=== PATIENT | female | born 1970 | race Caucasian/White ===

== ENCOUNTER → 2024-01-06 12:21 | Outpatient (REF) | payer BC, SELFPAY | LOC: HWWDC 12:21 | PROVIDERS: ATTENDING PHYSICIAN Nurse Practitioner Women's Health; FAMILY PHYSICIAN Family Medicine | DX: Z12.31 Encounter for screening mammogram for malignant neoplasm of breast (principal) | CPT/HCPCS: 77063; 77067 ==

== ENCOUNTER → 2025-02-22 13:59 | Outpatient (REF) | payer BC, SELFPAY | LOC: WDC 13:59 | PROVIDERS: ATTENDING PHYSICIAN Nurse Practitioner Women's Health; FAMILY PHYSICIAN Family Medicine | DX: Z12.31 Encounter for screening mammogram for malignant neoplasm of breast (principal) | CPT/HCPCS: 77063; 77067 ==